=== PATIENT | female | born 1930 | race Caucasian/White ===

== ENCOUNTER 2017-03-06 10:41 | Emergency (ER) | payer MEDICARE ==
[2017-03-06 11:11] VITALS: BP 159/45
--- NOTE | 2017-03-06 11:53 | UC ---
Throat Pain/Nasal Diony HPI - HPI Summary HPI Summary: sore throat and nasal congestion x 2 days + pnd, runny nose no cough , + sob due to COPD on O2 no fever, no chills - History of Current Complaint Chief Complaint: UCGeneralIllness Stated Complaint: COUGH RUNNY NOSE Time Seen by Provider: 03/06/17 11:33 Hx Obtained From: Patient Hx Last Menstrual Period: n/a Onset/Duration: Gradual Onset, Lasting Days - 2, Still Present Severity: Moderate Cough: None Associated Signs & Symptoms: Positive: Nasal Discharge. Negative: Wheezing, Hoarseness, Sinus Discomfort, Fever, Rash - Allergies/Home Medications Allergies/Adverse Reactions: Allergies Allergy/AdvReac Type Severity Reaction Status Date / Time Iodinated Diagnostic Agents Allergy Facial Verified 03/06/17 11:11 Redness/Flushing seasonal Allergy Eyes Uncoded 03/06/17 11:11 Itchy/Swollen/Red/Watery Home Medications: Home Medications Atenolol TAB* [Tenormin TAB* 25 MG] 50 mg PO BID 03/06/17 [History Confirmed 07/18] Hydrochlorothiazide TAB* [Hydrodiuril TAB*] 12.5 mg PO DAILY 03/06/17 [History Confirmed 03/06/17] Insulin Glargine [Lantus] 40 unit SUBCUT QAM 03/06/17 [History Confirmed ] Pantoprazole TAB (NF) [Protonix TAB (NF)] 40 mg PO DAILY 03/06/17 [History Confirmed 03/06/17] cloNIDine TAB* [Catapres 0.1 MG TAB*] 0.1 mg PO BID 03/06/17 [History Confirmed 03/06/17] PMH/Surg Hx/FS Hx/Imm Hx Endocrine History: Diabetes, Thyroid Disease Cardiovascular History: Cardiac Disease Respiratory History: Asthma - Surgical History Surgical History: Yes Surgery Procedure, Year, and Place: ovarian tumor ', R CEA with Hemashield Patch 07/2010, appy - Family History Known Family History: Positive: Hypertension - Social History Alcohol Use: Rare Substance Use Type: None Smoking Status (MU): Former Smoker Type: Cigarettes Amount Used/How Often: 1.5 PPD FOR ABOUT 50 YEARS - quit 13 years ago Have You Smoked in the Last Year: No When Did the Patient Quit Smoking/Using Tobacco: 2003 - Immunization History Most Recent Influenza Vaccination: 2014 Most Recent Tetanus Shot: UNKNOWN Most Recent Pneumonia Vaccination: 1 YEAR AGO 2015 Hx Tetanus, Diphtheria Vaccination: Yes Vaccination Up to Date: Yes Review of Systems Constitutional: Negative Skin: Negative Eyes: Negative ENT: Sore Throat, Ear Ache, Nasal Discharge Respiratory: Negative Cardiovascular: Negative Gastrointestinal: Negative Neurovascular: Negative Musculoskeletal: Negative Is Patient Immunocompromised?: No All Other Systems Reviewed And Are Negative: Yes Physical Exam Triage Information Reviewed: Yes Appearance: No Pain Distress, Obese Vital Signs: Initial Vital Signs Temp 97.7 F 03/06/17 11:06 Pulse 79 03/06/17 11:06 Resp 16 03/06/17 11:06 BP 159/45 03/06/17 11:06 Pulse Ox 93 03/06/17 11:06 Vital Signs Reviewed: Yes Eyes: Positive: Conjunctiva Clear ENT: Positive: Normal ENT inspection, Hearing grossly normal, Pharynx normal, Nasal drainage Neck: Positive: Supple, Nontender, No Lymphadenopathy Respiratory: Positive: Chest non-tender, Lungs clear, Normal breath sounds Cardiovascular: Positive: RRR, No Murmur, Pulses Normal Skin Exam: Normal Throat Pain/Nasal Course/Dx - Differential Dx/Diagnosis Provider Diagnoses: uri Discharge - Discharge Plan Condition: Stable Disposition: HOME Patient Education Materials: Upper Respiratory Infection (ED) Referrals: Kenneth Golden MD [Primary Care Provider] - 5 Days Additional Instructions: viral illness, no need for antibiotics
== END 2017-03-06 12:01 | disposition home or self-care (01) ==
LOC: UCCORT 10:41
DX: J06.9 Acute upper respiratory infection, unspecified (principal); E11.9 Type 2 diabetes mellitus without complications; Z79.4 Long term (current) use of insulin; E07.9 Disorder of thyroid, unspecified; I51.9 Heart disease, unspecified; J45.909 Unspecified asthma, uncomplicated; E66.9 Obesity, unspecified; Z87.891 Personal history of nicotine dependence
CPT/HCPCS: 99211; G0463

== ENCOUNTER 2019-05-23 11:02 | Emergency (ER) | payer MEDICARE ==
--- OUTSIDE RECORDS SUMMARY | 2019-05-23 11:13 | XMS REPORT | Summary of Care ---
:1930 Author Organization [facility] Address [address] [place] [address] Care Team Providers Name Role Phone Kenneth Golden MD Primary Care Provider Reason for Visit Reason Comments Follow-up Joint Pain Encounter Details Date Type Department Care Team Description 03/25/2019 Office Visit [facility] Rheumatology Luisa Sahu MD Polymyalgia rheumatica (Primary Dx); [address] Current chronic [place] of [place] [address] [address] [phone] [place] [address] [phone] Allergies Active Allergy Reactions Severity Noted Date Comments Sucralfate Swelling 01/18/2019 documented as of this encounter (statuses as of 03/25/2019) Medications Medication Sig Dispensed Refills Start Date End Date Status allopurinol (ZYLOPRIM) Take 200 mg by 0 Active 100 MG tablet mouth daily zoster vaccine Inject 0.5 mLs 0 Active recombinant, adjuvanted into the muscle (SHINGRIX) IM injection once Lancet Device MISC Use as directed. 0 Active Insulin Pen Needle 31G X Use as directed. 0 Active 8 MM MISC levothyroxine Take 75 mcg by 0 Active (SYNTHROID) 75 MCG CAPS mouth daily capsules tiotropium (SPIRIVA Inhale 2 puffs 0 Active RESPIMAT) 2.5 MCG/ACT into the lungs AERS inhalation spray daily furosemide (LASIX) 40 MG Take 40 mg by 0 Active tablet mouth daily Ferrous Sulfate (IRON) Take by mouth Two 0 Active 28 MG TABS Times Daily aspirin 81 MG tablet Take 81 mg by 0 Active mouth daily pantoprazole (PROTONIX) Take 40 mg by 0 Active 40 MG tablet mouth daily atenolol (TENORMIN) 50 Take 50 mg by 0 Active MG tablet mouth Two Times Daily hydrochlorothiazide Take 12.5 mg by 0 Active (MICROZIDE) 12.5 MG mouth daily capsule pravastatin (PRAVACHOL) Take 40 mg by 0 Active 40 MG tablet mouth daily gabapentin (NEURONTIN) Take 300 mg by 0 Active 300 MG capsule mouth Three times daily glimepiride (AMARYL) 1 Take 1 mg by 0 Active MG tablet mouth Twice Daily albuterol (VENTOLIN HFA) Inhale 2 puffs 0 Active 108 (90 Base) MCG/ACT into the lungs inhaler every 6 (six) hours as needed for Wheezing METFORMIN HCL ER PO Take 750 mg by 0 Active mouth lisinopril Take 20 mg by 0 Active (PRINIVIL,ZESTRIL) 20 MG mouth daily tablet Fluticasone-Salmeterol Inhale 1 puff 0 Active (ADVAIR) 500-50 MCG/DOSE into the lungs AEPB amlodipine (NORVASC) 5 Take 5 mg by 0 Active MG tablet mouth daily cloNIDine (CATAPRES) 0.1 Take 0.1 mg by 0 Active MG tablet mouth Two Times Daily albuterol (PROVENTIL) Take 2.5 mg by 0 Active (2.5 MG/3ML) 0.083% nebulization nebulizer solution every 6 (six) hours as needed for Wheezing naproxen (NAPROSYN) 500 Take 500 mg by 0 Active MG tablet mouth Two times daily as needed Lutein 20 MG TABS Take by mouth 0 Active Cyclobenzaprine HCl 5 MG Take 5 mg by 0 08/15/2018 Active Oral Tablet (FLEXERIL) mouth Two Times Daily FreeStyle Lite Device Use as directed. 0 02/01/2019 Active Use as Directed Lantus SoloStar 100 0 11/23/2018 Active UNIT/ML Subcutaneous Solution Pen-injector Sulindac 150 MG Oral Take by mouth 1 01/30/2019 Active Tablet (CLINORIL) daily Alendronate Sodium 35 MG TAKE ONE TABLET 12 tablet 1 02/12/2019 Active Oral Tablet BY MOUTH EVERY 7 (FOSAMAX)Indications: DAYS Current chronic use of systemic steroids documented as of this encounter (statuses as of 03/25/2019) Active Problems Problem Noted Date Chronic pain of both shoulders 02/11/2019 Pain in both hands 02/11/2019 Pain in both feet 02/11/2019 Pain of both elbows 02/11/2019 Polymyalgia rheumatica 02/11/2019 Current chronic use of systemic steroids 02/11/2019 documented as of this encounter (statuses as of 03/25/2019) Social History Tobacco Use Types Packs/Day Years Used Date Former Smoker Cigarettes 0 Smokeless Tobacco: Never Used Tobacco Cessation: Counseling Given: No Alcohol Use Drinks/Week oz/Week Comments Never Alcohol Habits Answer Date Recorded How often do you have a drink containing alcohol? Never 02/12/2019 How many drinks containing alcohol do you have on a typical Not asked day when you are drinking? How often do you have six or more drinks on one occasion? Not asked Sex Assigned at Date Recorded Not on file Job Start Date Occupation Industry Not on file Not on file Not on file Travel History Travel Start Travel End No recent travel history available. documented as of this encounter Last Filed Vital Signs Vital Sign Reading Time Taken Comments Blood Pressure 143/52 03/25/2019 12:21 PM EST Pulse 70 03/25/2019 12:21 PM EST Temperature 36.9 03/25/2019 12:21 PM EST C (98.5 F) Respiratory Rate 15 03/25/2019 12:21 PM EST Oxygen Saturation 95% 03/25/2019 12:21 PM EST Inhaled Oxygen Concentration - - Weight 87.1 kg (192 lb) 03/25/2019 12:21 PM EST Height 160 cm (5' 3") 03/25/2019 12:21 PM EST Body Mass Index 34.01 03/25/2019 12:21 PM EST documented in this encounter Progress Notes Luisa Sahu MD - 03/25/2019 12:30 PM EST Subjective: Patient ID: Shaji Palmer is a 88 y.o. female. Chief Complaint: f/u for PMR HPI Shaji is here for a follow up for PMR. She currently is on prednisone 15mg daily and has been on thisdose for 6 weeks. ESR was 68. No joint pains, no joint swelling. Morning stiffness in the hands for about 20 minutes. No headaches or blurry vision. No jaw claudication. Past Medical History: Diagnosis Date Anemia Arthritis COPD (chronic obstructive pulmonary disease) Diabetes mellitus Gout Headache Hyperlipidemia Hypertension Stroke Thyroid disease Past Surgical History: Procedure Laterality Date APPENDECTOMY CATARACT EXTRACTION COLONOSCOPY JOINT REPLACEMENT knee LEFT OOPHORECTOMY Left Family History Problem Relation Age of Onset Arthritis Mother Heart disease Mother Hypertension Mother Diabetes Mother Heart disease Father Social History Tobacco Use Smoking status: Former Smoker Packs/day: 0.00 Types: Cigarettes Smokeless tobacco: Never Used Substance Use Topics Alcohol use: Never Frequency: Never Drug use: Never Allergies Allergen Reactions Carafate [Sucralfate] Swelling Current Outpatient Medications Medication Sig Dispense Refill albuterol (PROVENTIL) (2.5 MG/3ML) 0.083% nebulizer solution Take 2.5 mg by nebulization every 6 (six) hours as needed for Wheezing albuterol (VENTOLIN HFA) 108 (90 Base) MCG/ACT inhaler Inhale 2 puffs into the lungs every 6 (six) hours as needed for Wheezing Alendronate Sodium 35 MG Oral Tablet (FOSAMAX) TAKE ONE TABLET BY MOUTH EVERY 7 DAYS 12 tablet 1 allopurinol (ZYLOPRIM) 100 MG tablet Take 200 mg by mouth daily amlodipine (NORVASC) 5 MG tablet Take 5 mg by mouth daily aspirin 81 MG tablet Take 81 mg by mouth daily atenolol (TENORMIN) 50 MG tablet Take 50 mg by mouth Two Times Daily cloNIDine (CATAPRES) 0.1 MG tablet Take 0.1 mg by mouth Two Times Daily Cyclobenzaprine HCl 5 MG Oral Tablet (FLEXERIL) Take 5 mg by mouth Two Times Daily 0 Ferrous Sulfate (IRON) 28 MG TABS Take by mouth Two Times Daily Fluticasone-Salmeterol (ADVAIR) 500-50 MCG/DOSE AEPB Inhale 1 puff into the lungs FreeStyle Lite Device Use as directed. Use as Directed 0 furosemide (LASIX) 40 MG tablet Take 40 mg by mouth daily gabapentin (NEURONTIN) 300 MG capsule Take 300 mg by mouth Three times daily glimepiride (AMARYL) 1 MG tablet Take 1 mg by mouth Twice Daily hydrochlorothiazide (MICROZIDE) 12.5 MG capsule Take 12.5 mg by mouth daily Insulin Pen Needle 31G X 8 MM MISC Use as directed. Lancet Device MISC Use as directed. Lantus SoloStar 100 UNIT/ML Subcutaneous Solution Pen-injector 0 levothyroxine (SYNTHROID) 75 MCG CAPS capsules Take 75 mcg by mouth daily lisinopril (PRINIVIL,ZESTRIL) 20 MG tablet Take 20 mg by mouth daily Lutein 20 MG TABS Take by mouth METFORMIN HCL ER PO Take 750 mg by mouth naproxen (NAPROSYN) 500 MG tablet Take 500 mg by mouth Two times daily as needed pantoprazole (PROTONIX) 40 MG tablet Take 40 mg by mouth daily pravastatin (PRAVACHOL) 40 MG tablet Take 40 mg by mouth daily Sulindac 150 MG Oral Tablet (CLINORIL) Take by mouth daily 1 tiotropium (SPIRIVA RESPIMAT) 2.5 MCG/ACT AERS inhalation spray Inhale 2 puffs into the lungsdaily zoster vaccine recombinant, adjuvanted (SHINGRIX) IM injection Inject 0.5 mLs into the muscleonce No current facility-administered medications for this visit. Review of Systems Constitutional: Negative for chills and malaise/fatigue, fever HENT: Negative for sore throat. Eyes: Negative for blurred vision, double vision, pain and discharge. Respiratory: Negative for hemoptysis, sputum production and shortness of breath. +cough Cardiovascular: Negative for lower extremity swelling, chest pain and palpitations. Gastrointestinal: Negative for heartburn, nausea, vomiting, abdominal pain constipation, and diarrhea. Genitourinary: Negative for dysuria, hematuria and flank pain. Musculoskeletal: +joint pains and swelling Skin: Negative for rash. Neurological: Negative for dizziness, sensory change, speech change, focal weakness, loss of consciousness, tingling/numbness and weakness. Endo/Heme/Allergies: Does not bruise/bleed easily. Objective: Vitals: 03/25/19 1221 BP: 143/52 Pulse: 70 Resp: 15 Temp: 36.9 C (98.5 F) SpO2: 95% Physical Exam Constitutional: Alert and oriented x3, no acute distress HEENT: Normocephalic, atraumatic, PERRLA Cardiovascular: Regular rate and rhythm, S1 normal and S2 normal. Lungs: Clear to auscultation b/l. No wheezing Abdomen: Soft, non-tender Musculoskeletal: no synovitis or tenderness Neurological: alert and oriented to person, place, and time. Extremities: no edema Skin: Skin is warm and dry. Assessment: Shaji is here for a follow up for PMR. She currently is on prednisone 15mg daily and has been on thisdose for 6 weeks. ESR was 68. Plan: 1. PMR 2. Chronic steroid use Plan: 1. Currently on prednisone 15mg daily. Decrease by 2.5 mg every 3-4 week until on 10mg daily. Patient to call me when on 10mg daily so I can instruct her how to taper prednisone 2. Continue calcium/vitamin d/fosamax 3. Follow up 3-4 months - Activities as tolerated. - Fall precautions emphasized. - Diet: low carb/low fat, more greens/vegetables, adequate hydration - Encouraged to maintain good sleep hygiene - Continue other medications as prescribed by PCP and other specialist. - DVT precautions especially long distance travel -RTC: 3-4 months documented in this encounter Plan of Treatment Date Type Specialty Care Team Description 07/29/2019 Office Visit Rheumatology Luisa Sahu MD [address] [place] [address] [address] [place] [address] [phone] Health Maintenance Due Date Last Done Comments MMR Vaccines (1 of 1 - Standard 12/18/1931 series) Varicella Vaccines (1 of 2 - [birth year]18/1931 2-dose childhood series) DTaP,Tdap,and Td Vaccines (1 - 12/18/1938 Tdap) Zoster Vaccines (1 of 2) 12/18/1981 Osteoporosis Screening 2 yr 12/18/1996 Pneumococcal Vaccine: 65+ Years (1 12/18/1996 of 2 - PCV13) Influenza Vaccine 01/01/2019 HIB Vaccines Aged Out No longer eligible based on patient's age to complete this topic Hepatitis A Vaccines Aged Out No longer eligible based on patient's age to complete this topic Hepatitis B Vaccines Aged Out No longer eligible based on patient's age to complete this topic IPV Vaccines Aged Out No longer eligible based on patient's age to complete this topic Pneumococcal Vaccine: Pediatrics Aged Out No longer eligible based on (0 to 5 Years) and At-Risk patient's age to complete this Patients (6 to 64 Years) topic documented as of this encounter Results Not on filedocumented in this encounter Visit Diagnoses Diagnosis Polymyalgia rheumatica - Primary Current chronic use of systemic steroids documented in this encounter
[2019-05-23 11:50] VITALS: BP 153/55
--- NOTE | 2019-05-23 11:56 | UC ---
UC General HPI - HPI Summary HPI Summary: Bilateral foot swelling for the past 2 weeks. Pt states they swell in the daytime and go down at night. Pt's brush maker has her on a tapering dose of Prednisone, daughter unsure if that is what is causing the issue. Pt's PCP recommended she come in here to be seen. - History of Current Complaint Chief Complaint: UCLowerExtremity Stated Complaint: BILATERAL FEET SWELLING Time Seen by Provider: 05/23/19 11:55 Hx Obtained From: Patient Hx Last Menstrual Period: n/a Onset/Duration: Sudden Onset, Lasting Days - 2 Timing: Constant Onset Severity: Mild Current Severity: Mild Pain Intensity: 0 Associated Signs & Symptoms: Positive: Edema - Allergy/Home Medications Allergies/Adverse Reactions: Allergies Allergy/AdvReac Type Severity Reaction Status Date / Time Iodinated Contrast Media Allergy Swelling Verified 05/23/19 11:41 Of Face,Lips,& Throat seasonal Allergy Eyes Uncoded 03/06/17 11:11 Itchy/Swollen/Red/Watery Home Medications: Home Medications Gabapentin 300 mg PO TID 02/02/12 [History Confirmed 05/23/19] Metformin HCl 750 mg PO 1600 02/02/12 [History Confirmed 05/23/19] Albuterol Sulfate [Ventolin Hfa] 2 puff INH Q6H PRN 04/02/13 [History Confirmed 05/23/19] Glimepiride 1 mg PO DAILY 11/18/14 [History Confirmed 05/23/19] Aspirin EC TAB* [Ecotrin EC Low Dose 81 MG*] 81 mg PO DAILY tab.ec 08/29/15 [ Rx Confirmed 05/23/19] Clopidogrel TAB* [Plavix TAB*] 75 mg PO DAILY #30 tab 08/29/15 [Rx Confirmed ] Fluticasone-Salmeterol 500-50* [Advair Diskus 500-50*] 1 puff INH BID #0 [Rx Confirmed 05/23/19] Levothyroxine TAB* [Synthroid TAB*] 50 mcg PO DAILY #0 08/29/15 [Rx Confirmed ] amLODIPine TAB* [Norvasc 5 mg TAB*] 5 mg PO BID #0 08/29/15 [Rx Confirmed ] Atenolol TAB* [Tenormin TAB* 25 MG] 50 mg PO BID 03/06/17 [History Confirmed ] Hydrochlorothiazide TAB* [Hydrodiuril TAB*] 12.5 mg PO DAILY 03/06/17 [History Confirmed 05/23/19] Insulin Glargine,Hum.rec.anlog [Lantus] 40 unit SUBCUT QAM 03/06/17 [History Confirmed 05/23/19] cloNIDine TAB* [Catapres 0.1 MG TAB*] 0.1 mg PO BID 03/06/17 [History Confirmed 05/23/19] Allopurinol TAB* [Zyloprim 100 MG TAB*] 100 mg PO DAILY 05/23/19 [History Confirmed 05/23/19] Furosemide TAB* [Lasix TAB*] 40 mg PO DAILY 05/23/19 [History Confirmed 05/23/19 ] Pantoprazole TAB * [Protonix TAB*] 40 mg PO DAILY 05/23/19 [History Confirmed ] Pravastatin Sodium 40 mg PO DAILY 05/23/19 [History Confirmed 05/23/19] Sulindac (NF) [Clinoril (NF)] 200 mg PO DAILY 05/23/19 [History Confirmed ] Tiotropium [place] [Spiriva Respimat] 1 inh INH DAILY 05/23/19 [History Confirmed 05/23/19] lisinopriL [Lisinopril] 20 mg PO DAILY 05/23/19 [History Confirmed 05/23/19] predniSONE 5 mg TAB [Deltasone 5 mg TAB] 15 mg PO DAILY 05/23/19 [History Confirmed 05/23/19] PMH/Surg Hx/FS Hx/Imm Hx Previously Healthy: Yes - Surgical History Surgical History: Yes Surgery Procedure, Year, and Place: ovarian tumor ',. R CEA with Hemashield Patch 07/2010,. appendectomy - Family History Known Family History: Positive: Hypertension - Social History Occupation: Retired Alcohol Use: None Substance Use Type: None Smoking Status (MU): Former Smoker Type: Cigarettes Amount Used/How Often: 1.5 PPD FOR ABOUT 50 YEARS - quit 13 years ago Have You Smoked in the Last Year: No When Did the Patient Quit Smoking/Using Tobacco: 2002 - Immunization History Most Recent Influenza Vaccination: 2014 Most Recent Tetanus Shot: UNKNOWN Most Recent Pneumonia Vaccination: 1 YEAR AGO 2015 Hx Tetanus, Diphtheria Vaccination: Yes Vaccination Up to Date: Yes Review of Systems All Other Systems Reviewed And Are Negative: Yes Constitutional: Positive: Negative Respiratory: Positive: Shortness Of Breath Musculoskeletal: Positive: Edema Is Patient Immunocompromised?: No Physical Exam Triage Information Reviewed: Yes Appearance: No Pain Distress, Ill-Appearing, Obese Vital Signs: Initial Vital Signs Temp 98.1 F 05/23/19 11:42 Pulse 66 05/23/19 11:42 Resp 14 05/23/19 11:42 BP 153/55 05/23/19 11:42 Pulse Ox 93 05/23/19 11:42 Vital Signs Reviewed: Yes Eye Exam: Normal ENT Exam: Normal Dental Exam: Normal Neck exam: Normal Neck: Positive: Supple, Nontender, No Lymphadenopathy Respiratory: Positive: Respiratory distress - mild at baseline, Crackles - RLL Cardiovascular Exam: Normal Abdominal Exam: Normal Bowel Sounds: Positive: Present Musculoskeletal: Positive: Edema @ - mild non pitting edema of bilateral feet Neurological Exam: Normal Psychological Exam: Normal Skin Exam: Other - dry Course/Dx - Course Course Of Treatment: hx obtained, exam performed, meds reviewed, chest xray obtained. - Diagnoses Provider Diagnosis: Lower leg edema, COPD (chronic obstructive pulmonary disease) Discharge ED - Sign-Out/Discharge Documenting (check all that apply): Patient Departure All imaging exams completed and their final reports reviewed: No Studies - Discharge Plan Condition: Stable Disposition: HOME Patient Education Materials: Leg Edema (ED) Referrals: Kenneth Golden MD [Primary Care Provider] - Additional Instructions: 1. your chest xray showed 2. Use compression stocking and elevate your feet at rest 3. If the swelling continuew to increase, you develop worsening shortness of breath you need to see Dr Golden to change your diuretic medications. - Billing Disposition and Condition Condition: STABLE Disposition: Home
== END 2019-05-23 12:54 | disposition home or self-care (01) ==
LOC: UCCORT 11:02
DX: J44.9 Chronic obstructive pulmonary disease, unspecified (principal); R60.0 Localized edema; Z91.09 Other allergy status, other than to drugs and biological substances; Z87.891 Personal history of nicotine dependence
CPT/HCPCS: 71046; 99212; G0463